=== PATIENT | female | born 1990 | race Caucasian/White ===

== ENCOUNTER 2023-01-10 10:04 | Emergency (ER) | payer OTHER ==
[~2023-01-10] VITALS: Ht 154.9 cm; Wt 82.0 kg
[2023-01-10 10:20] VITALS: TEMP 98.3
[2023-01-10] MEDS ORDERED: ACETAMINOPHEN 500 MG TABLET PO ONE (11:00)
[2023-01-10 12:50] VITALS: BP 114/68; PULSE 84; RESP 20
== END 2023-01-10 12:53 | disposition home or self-care (01) ==
LOC: EMS 10:11
DX: R51.9 Headache, unspecified (principal); F41.9 Anxiety disorder, unspecified; Z90.49 Acquired absence of other specified parts of digestive tract; Z98.890 Other specified postprocedural states
CPT/HCPCS: 99281; Z7502; Z7610